=== PATIENT | female | born 1990 | race African-American/Black ===

== ENCOUNTER → 2016-08-20 | Emergency (ER) | payer OTHER ==
[~2016-08-20] VITALS: Ht 167.6 cm; Wt 91.6 kg
[~2016-08-20] MED LIST: Metoclopramide 10mg/2ml Inj IVP ONE
--- NOTE | 2016-08-20 12:31 | Emergency Room Report ---
History of Present Illness General Chief Complaint: Flu Like Symptoms Present Illness HPI The pt is a 26 yo at 12 weeks gestation presenting for one week of nausea and vomiting. The pt states that she has not been able to eat or drink well since these symptoms began. Pt states the vomit consists of whatever she most recently ingested. The pt went to see her OBGYN today who told her to come to the ER. The pt noticed a small amount of vaginal bleeding this afternoon but denies abdominal cramping. The pt does admit to fatigue. The pt denies any pain and denies dysuria, hematuria, flank pain, swelling, cough, CP, SOB, hematemesis , diarrhea (LEIDY PURI P.A.) Allergies: Coded Allergies: No Known Allergies (Unverified , 08/20/16) Patient History Past Medical History: see triage record Pertinent Family History: none Last Menstrual Period: apr 2016 Now: Yes : 1 Para: 0 Reviewed Nursing Documentation: PMH: Agreed, PSxH: Agreed (LEIDY PURI P.A.) Review of Systems All Other Systems: negative except mentioned in HPI (LEIDY PURI P.A.) Physical Exam Vital Signs Date Time Temp Pulse Resp B/P Pulse Ox O2 Delivery O2 Flow Rate FiO2 08/20/16 12:15 99.0 86 18 126/76 98 Room Air Sp02 EP Interpretation: reviewed, normal General Appearance: alert, GCS 15, non-toxic, lethargic Head: normocephalic, atraumatic Eyes: bilateral eye PERRL, bilateral eye normal inspection ENT: hearing grossly normal, normal pharynx, no angioedema, normal voice Neck: full range of motion, supple/symm/no masses Respiratory: chest non-tender, lungs clear, normal breath sounds, speaking full sentences Cardiovascular #1: regular rate, rhythm, no edema Gastrointestinal: normal bowel sounds, non tender, soft, non-distended, no guarding, no rebound Genitourinary: normal inspection, no CVA tenderness Musculoskeletal: back normal, gait/station normal, normal range of motion, non- tender Neurologic: alert, oriented x3, responsive, motor strength/tone normal, sensory intact, speech normal Psychiatric: judgement/insight normal, memory normal, mood/affect normal, no suicidal/homicidal ideation Skin: normal color, no rash, warm/dry, well hydrated Lymphatic: no adenopathy (LEIDY PURI) Medical Decision Making PA Attestation Dr. Monahan is my supervising physician. Patient management was discussed with my supervising physician (LEIDY PURI) Medicare Attestation Patient was seen and evaluated by myself as well I do agree with the exam and workup At this time given the patient's continued discomfort appears to have findings in line with hyperemesis gravidarum, with regards to the ultrasound abnormalities patient is approximately 13 weeks and no further acute intervention was required in the emergency room patient accepted by Dr. juarez at [facility] for further followup in- patient, , (RYNE MONAHAN D.O.) Diagnostic Impression: Primary Impression: Hyperemesis gravidarum ER Course The pt is a 26 yo at 12 weeks gestation presenting for one week of nausea and vomiting DDx: Threatened , placental abruption, hyperemesis gravidarum, dehydration, gastroenteritis PE: vitals WNL. afebrile. Pt appears lethargic and is actively retching Abd: soft and nontender. Normal BS. Skin warm and dry. Normal turgor RRR Labs: CBC: mild leukocytosis, No anemia CMP: unremarkable. Beta quant: WNL for gestational age UA: no blood. No signs of infection US: Consistent with Placental abruption. Good heart tones. Otherwise unremarkable. IV initially unable to be attained after multiple attempts. IV access is obtained and pt is given IV fluids and reglan. Pt has mild improvement of symptoms. The pt still appears lethargic and continues to vomit. Pt will be admitted in stable condition and was informed of the results. Pt advised she needs strict bedrest as this is now a high risk . Labs Test 08/20/16 15:58 08/20/16 17:50 Urine Color Yellow Urine Appearance Clear Urine pH 8 (4.5-8.0) Urine Specific [place] 1.010 (1.005-1.035) Urine Protein Negative (NEGATIVE) Urine Glucose (UA) Negative (NEGATIVE) Urine Ketones 4+ (NEGATIVE) Urine Occult Blood Negative (NEGATIVE) Urine Nitrite Negative (NEGATIVE) Urine Bilirubin Negative (NEGATIVE) Urine Urobilinogen Normal MG/DL (0.0-1.0) Urine Leukocyte Esterase Negative (NEGATIVE) Urine HCG, Qualitative Positive White Blood Count 12.7 K/UL (4.8-10.8) Red Blood Count 4.09 M/UL (4.20-5.40) Hemoglobin 12.1 G/DL (12.0-16.0) Hematocrit 36.7 % (37.0-47.0) Mean Corpuscular Volume 90 FL (80-99) Mean Corpuscular Hemoglobin 29.5 PG (27.0-31.0) Mean Corpuscular Hemoglobin Concent 32.9 G/DL (32.0-36.0) Red Cell Distribution Width 11.5 % (11.6-14.8) Platelet Count 196 K/UL (150-450) Mean Platelet Volume 7.4 FL (6.5-10.1) Neutrophils (%) (Auto) % (45.0-75.0) Lymphocytes (%) (Auto) % (20.0-45.0) Monocytes (%) (Auto) % (1.0-10.0) Eosinophils (%) (Auto) % (0.0-3.0) Basophils (%) (Auto) % (0.0-2.0) Differential Total Cells Counted 100 Neutrophils % (Manual) 82 % (45-75) Lymphocytes % (Manual) 15 % (20-45) Monocytes % (Manual) 0 % (1-10) Eosinophils % (Manual) 0 % (0-3) Basophils % (Manual) 2 % (0-2) Band Neutrophils 1 % (0-8) Platelet Estimate Adequate Platelet Morphology Normal Red Blood Cell Morphology Normal Sodium Level 138 mEQ/L (135-145) Potassium Level 3.7 mEQ/L (3.4-4.9) Chloride Level 98 mEQ/L (98-107) Carbon Dioxide Level 22 mEQ/L (20-30) Anion Gap 18 (5-15) Blood Urea Nitrogen 3 mg/dL (7-23) Creatinine 0.6 mg/dL (0.5-0.9) Estimat Glomerular Filtration Rate > 60 mL/min (>60) Glucose Level 96 mg/dL (74-106) Calcium Level 9.5 mg/dL (8.6-10.2) Total Bilirubin 0.8 mg/dL (0.0-1.2) Aspartate Amino Transf (AST/SGOT) 18 U/L (5-40) Alanine Aminotransferase (ALT/SGPT) 30 U/L (3-33) Alkaline Phosphatase 38 U/L (35-104) Total Protein 7.4 g/dL (6.6-8.7) Albumin 4.0 g/dL (3.5-5.2) Globulin 3.4 g/dL Albumin/Globulin Ratio 1.1 (1.0-2.7) Human Chorionic Gonadotropin, Quant 50385 mIU/mL Lab Results Impression CBC: mild leukocytosis, No anemia CMP: unremarkable. Beta quant: WNL for gestational age UA: no blood. No signs of infection (LEIDY PURI) CT/MRI/US Diagnostic Results CT/MRI/US Diagnostic Results : Imaging Test Ordered: First trimester US Impression Consistent with Placental abruption. Good heart tones. Otherwise unremarkable. (LEIDY PURI) Last Vital Signs Date Time Temp Pulse Resp B/P Pulse Ox O2 Delivery O2 Flow Rate FiO2 08/20/16 12:15 99.0 86 18 126/76 98 Room Air Status: improved (LEIDY PURI) Disposition: ER [facility] Condition: Stable LEIDY PURI Aug 20, 2016 12:31 RYNE MONAHAN D.O. Aug 20, 2016 21:07
[2016-08-20 16:31] LABS: APPEARANCE,URINE CLEAR; KETONES,URINE 4+ (NEGATIVE); LEUKOCYTE ESTERASE ,URINE NEGATIVE (NEGATIVE); NITRITE,URINE NEGATIVE (NEGATIVE); PH,URINE 8 (4.5-8.0); PROTEIN,URINE NEGATIVE (NEGATIVE); UROBILINOGEN,URINE NORMAL MG/DL (0.0-1.0)
[2016-08-20 18:21] LABS: MEAN CORPUSCULAR HEMOGLOBIN 29.5 PG (27.0-31.0); MEAN CORPUSCULAR HGB CONC 32.9 G/DL (32.0-36.0); MEAN CORPUSCULAR VOLUME 90 FL (80-99); MEAN PLATELET VOLUME 7.4 FL (6.5-10.1); PLATELET COUNT 196 K/UL (150-450); RED BLOOD COUNT 4.09 M/UL (4.20-5.40); RED CELL DISTRIBUTION WIDTH 11.5 % (11.6-14.8); WHITE BLOOD COUNT 12.7 K/UL (4.8-10.8)
[2016-08-20 18:47] LABS: ALANINE AMINOTRANSFERASE 30 U/L (3-33); ALBUMIN/GLOBULIN RATIO 1.1 (1.0-2.7); ANION GAP 18 (5-15); ASPARTATE AMINO TRANSFERASE 18 U/L (5-40); CALCIUM 9.5 mg/dL (8.6-10.2); CARBON DIOXIDE 22 mEQ/L (20-30); CHLORIDE 98 mEQ/L (98-107); CREATININE 0.6 mg/dL (0.5-0.9); GLOMERULAR FILTRATION RATE > 60 mL/min (>60); HEMOLYSIS 2; POTASSIUM 3.7 mEQ/L (3.4-4.9); SODIUM 138 mEQ/L (135-145); TOTAL PROTEIN 7.4 g/dL (6.6-8.7)
[2016-08-20 19:06] LABS: BAND NEUTROPHILS % (MANUAL) 1 % (0-8); BASOPHILS % (MANUAL) 2 % (0-2); EOSINOPHILS % (MANUAL) 0 % (0-3); LYMPHOCYTES % (MANUAL) 15 % (20-45); NEUTROPHILS % (MANUAL) 82 % (45-75); PLATELET ESTIMATE ADEQUATE; PLATELET MORPHOLOGY NORMAL; TOTAL CELLS COUNTED 100
[2016-08-20 19:15] VITALS: BP 152/83
[2016-08-20 21:59] VITALS: BP 131/77
[2016-08-20 22:15] VITALS: BP 131/77
--- NOTE | 2016-11-05 08:49 | Diagnostic Imaging Report ---
Indications: Intrauterine , LMP 04/24/2016, pelvic pain and vaginal spotting Technique: Transabdominal and transvaginal real-time grayscale and duplex Doppler imaging of intrauterine was performed. Findings: Comparison: None. Single live intrauterine fetus is present, variable in lie and in presentation. Spontaneous movement and regular cardiac activity are demonstrated, 157 beats per minute. The placenta is anterior in location, grade one in maturity, and demonstrates an no intrinsic abnormalities. Its inferior margin approaches and may partially cover the internal cervical os. There are both a small amount of fluid in the 1.5 cm circumscribed solid echogenic mass interposed between the lower placental margin and internal cervical os. The mass does not definitively demonstrate an and 6 vascular and color Doppler imaging.. Amniotic fluid volume appears within normal limits. Amniotic fluid index not measured. The cervix is long and closed.no pelvic free fluid. Right ovary 4.6 x 2.7 x 4 cm, contains 2.5 cm complex cystic structure with internal septation and nodularity. The left ovary measures 4.3 x 1.6 x 3.9 cm and is unremarkable in appearance. Both demonstrate intact blood flow on color Doppler imaging. No adjacent adnexal mass or fluid collection. Fetus is too young to permit optimal evaluation of anatomy. lateral ventricles, spine, heart, and three-vessel umbilical cord are unremarkable in appearance. Remaining anatomy inadequately demonstrated.. No abnormalities are seen. Mean biparietal diameter 13 weeks 4 days. Mean head circumference 13 weeks 4 days. Mean abdominal circumference 13 weeks 4 days. Mean femur length 13 weeks zero days. . Estimated weight is 74+ or -11 grams. Composite estimated gestational age by sonographic measurements is 13 weeks 2 days +/- 1 standard deviation, estimated date of delivery 02/23/2017. This compares to an estimated gestational age of 16 weeks 6 days and estimated date of delivery of 01/29/2017 by LMP. IMPRESSION: Single live intrauterine , estimated gestational age 13 weeks 2 days by ultrasound versus 16 weeks 6 days by dates. This likely represents wrong dates. Limited evaluation of anatomy due to early gestational age. No abnormality identified. Recommend comprehensive anatomic survey later in second trimester.. Low lying placenta/partial previa with evidence of marginal abruption. Interposed 1.5 cm mass may represent small succenturiate lobe for blood clot. OB consultation, short interval sonographic followup recommended Please note that this examination was first presented for interpretation on 11/02/2016.
== END | disposition short-term general hospital (02) ==
LOC: EDBD 12:21 → EMR 13:10
DX: O21.0 Mild hyperemesis gravidarum (principal); Z3A.12 12 weeks gestation of pregnancy
CPT/HCPCS: 36415; 76805; 80053; 81003; 81025; 84702; 85007; 85025; 96360; 96374; 96375; 99285; J2405; J2765; 76801